=== PATIENT | female | born 1985 | race Caucasian/White ===

== ENCOUNTER 2017-12-23 12:18 | Emergency (ER) | payer SELFPAY, MEDICAID ==
[2017-12-23 15:01] LABS: ADD MAN DIFF? NO
[2017-12-23 15:04] LABS: WHITE BLOOD COUNT 9.5 10^3/ul (4.8-10.8)
[2017-12-23 15:04] LABS: BASOPHILS % 0.3 % (0.0-2.0); EOSINOPHILS # 0.1 10^3/ul (0.0-0.5); EOSINOPHILS % 1.5 % (0.0-7.0); HEMATOCRIT 39.6 % (37.0-47.0); HEMOGLOBIN 13.2 g/dl (12.0-16.0); LYMPHOCYTES # 1.6 10^3/ul (0.8-2.9); LYMPHOCYTES % 16.7 % (15.0-51.0); MEAN CORPUSCULAR HEMOGLOBIN 29.7 pg (29.0-33.0); MEAN CORPUSCULAR HGB CONC 33.3 g/dl (32.0-37.0); MEAN CORPUSCULAR VOLUME 89.2 fl (82.0-101.0); MEAN PLATELET VOLUME 11.2 fl (7.4-10.4); MONOCYTE # 0.6 10^3/ul (0.3-0.9); MONOCYTES % 6.1 % (0.0-11.0); NEUTROPHIL # 7.1 10^3/ul (1.6-7.5); PLATELET COUNT 282 10^3/UL (140-415); RED BLOOD COUNT 4.44 10^6/ul (4.20-5.40); RED CELL DISTRIBUTION WIDTH 13.2 % (11.5-14.5)
[2017-12-23 15:29] LABS: ANION GAP 16 (8-16); BLOOD UREA NITROGEN 13 mg/dl (7-20); CALCIUM 9.2 mg/dl (8.4-10.2); CARBON DIOXIDE 24 mmol/L (21-31); CHLORIDE 106 mmol/L (97-110); CREATININE 0.58 mg/dl (0.44-1.00); GLUCOSE 128 mg/dl (70-220); POTASSIUM 4.7 mmol/L (3.5-5.1); SODIUM 141 mmol/L (135-144)
[2017-12-23 15:42] LABS: ADD UMIC YES; UR ASCORBIC ACID NEGATIVE (NEGATIVE); UR BACTERIA MODERATE /HPF (NONE SEEN); UR BILIRUBIN (Dip) NEGATIVE (NEGATIVE); UR BLOOD (Dip) NEGATIVE (NEGATIVE); UR CLARITY CLOUDY (CLEAR); UR COLOR AMBER (YELLOW); UR GLUCOSE (Dip) 2+ mg/dL (NEGATIVE); UR KETONES (Dip) 1+ mg/dL (NEGATIVE); UR LEUKOCYTE ESTERASE (Dip) 1+ Leu/ul (NEGATIVE); UR MUCUS MANY /HPF (NONE SEEN); UR NITRITE (Dip) POSITIVE (NEGATIVE); UR RBC 11 /HPF (0-5); UR SPECIFIC GRAVITY (Dip) 1.029 (1.003-1.030); UR SQUAMOUS EPITHELIAL CELL MODERATE /HPF (FEW); UR TOTAL PROTEIN (Dip) NEGATIVE (NEGATIVE); UR UROBILINOGEN (Dip) 1+ mg/dL (NEGATIVE); UR WBC 6 /HPF (0-5)
[2017-12-23] MEDS: CEFTRIAXONE 1 GM INJ IM (16:56)
[2017-12-23] MEDS: LIDOCAINE 1% (MDV) 20 ML INJ SC (16:56)
== END 2017-12-23 17:46 | disposition home or self-care (01) ==
LOC: FTE 12:18
DX: O23.41 Unspecified infection of urinary tract in pregnancy, first trimester (principal); R10.2 Pelvic and perineal pain; Z3A.01 Less than 8 weeks gestation of pregnancy
CPT/HCPCS: 36415; 76801; 76817; 80048; 81001; 84702; 85025; 86900; 86901; 87086; 96372; 99285-25

== ENCOUNTER 2018-08-17 09:20 | Inpatient (IN) | payer MEDICAID ==
[2018-08-17] MEDS ORDERED: MISOPROSTOL 200 MCG TAB PR (10:30)
[2018-08-17] MEDS ORDERED: METHYLERGONOVINE 0.2 MG INJ IM (10:30)
[2018-08-17] MEDS ORDERED: CARBOPROST 250 MCG INJ IM (10:30)
[2018-08-17] MEDS ORDERED: OXYTOCIN 30 UNITS/LR 500 ML IV ×2 (10:30)
[2018-08-17] MEDS ORDERED: IBUPROFEN 600 MG TAB PO (10:30)
[2018-08-17] MEDS ORDERED: LIDOCAINE 1% (MPF) 30 ML INJ INJ (10:30)
[2018-08-17] MEDS ORDERED: BUTORPHANOL 1 MG INJ IV (10:30)
[2018-08-17] MEDS: LACTATED RINGER'S 1,000 ML IV* ×3 (10:48→22:40)
[2018-08-17 11:38] LABS: ADD MAN DIFF? NO
[2018-08-17 11:50] LABS: BASOPHILS % 0.3 % (0.0-2.0); EOSINOPHILS # 0.1 10^3/ul (0.0-0.5); EOSINOPHILS % 0.8 % (0.0-7.0); HEMATOCRIT 34.1 % (37.0-47.0); HEMOGLOBIN 11.3 g/dl (12.0-16.0); LYMPHOCYTES # 1.5 10^3/ul (0.8-2.9); LYMPHOCYTES % 19.9 % (15.0-51.0); MEAN CORPUSCULAR HEMOGLOBIN 29.4 pg (29.0-33.0); MEAN CORPUSCULAR HGB CONC 33.1 g/dl (32.0-37.0); MEAN CORPUSCULAR VOLUME 88.6 fl (82.0-101.0); MEAN PLATELET VOLUME 12.7 fl (7.4-10.4); MONOCYTE # 0.5 10^3/ul (0.3-0.9); MONOCYTES % 6.4 % (0.0-11.0); NEUTROPHIL # 5.5 10^3/ul (1.6-7.5); NEUTROPHILS % 72.3 % (39.0-77.0); PLATELET COUNT 224 10^3/UL (140-415); RED BLOOD COUNT 3.85 10^6/ul (4.20-5.40); RED CELL DISTRIBUTION WIDTH 13.1 % (11.5-14.5)
[2018-08-17 11:50] LABS: WHITE BLOOD COUNT 7.6 10^3/ul (4.8-10.8)
[2018-08-17 11:59] LABS: INR 0.88; PARTIAL THROMBOPLASTIN TIME 25.5 Sec (23.0-35.0); PT RATIO 0.9
[2018-08-17 12:41] LABS: ADD UMIC NO; UR ASCORBIC ACID NEGATIVE (NEGATIVE); UR BACTERIA FEW /HPF (NONE SEEN); UR BILIRUBIN (Dip) NEGATIVE (NEGATIVE); UR BLOOD (Dip) NEGATIVE (NEGATIVE); UR CLARITY SLIGHTLY CLOUDY (CLEAR); UR COLOR YELLOW (YELLOW); UR GLUCOSE (Dip) NEGATIVE (NEGATIVE); UR KETONES (Dip) NEGATIVE (NEGATIVE); UR LEUKOCYTE ESTERASE (Dip) NEGATIVE Leu/ul (NEGATIVE); UR NITRITE (Dip) NEGATIVE (NEGATIVE); UR RBC 1 /HPF (0-5); UR SPECIFIC GRAVITY (Dip) 1.004 (1.003-1.030); UR SQUAMOUS EPITHELIAL CELL FEW /HPF (FEW); UR TOTAL PROTEIN (Dip) NEGATIVE (NEGATIVE); UR UROBILINOGEN (Dip) NEGATIVE (NEGATIVE); UR WBC 2 /HPF (0-5)
[2018-08-17 13:07] LABS: AMPHETAMINE/METHAMPHETAMINE Negative (NEGATIVE); BARBITURATES Negative (NEGATIVE); BENZODIAZEPINES Negative (NEGATIVE); CANNABINOIDS Negative (NEGATIVE); COCAINE Negative (NEGATIVE); OPIATES Negative (NEGATIVE)
[2018-08-17] MEDS: MISOPROSTOL 50 MCG CAPSULE PO ×3 (13:48→22:46)
[2018-08-17 16:17] LABS: RAPID PLASMA REAGIN NONREACTIVE (NR)
[2018-08-17 17:08] LABS: HEPATITIS B SURFACE ANTIGEN NEGATIVE (NEGATIVE)
[2018-08-17] MEDS: BUTORPHANOL 2 MG INJ IV (20:31)
[2018-08-17] MEDS: DEXTROSE 5%-LR 1,000 ML IV (23:08)
[2018-08-18] MEDS: LACTATED RINGER'S 1,000 ML IV* ×6 (01:52→21:31)
[2018-08-18] MEDS ORDERED: FENTAnyl 2MCG/ML-ROPIV 0.2% 100 ML (02:43)
[2018-08-18] MEDS ORDERED: NALOXONE (0.4 MG/ML) INJ IV ×3 (03:00→08:00)
[2018-08-18] MEDS ORDERED: FENTAnyl 2MCG/ML-ROPIV 0.2% 100 ML BAG EPI (03:00)
[2018-08-18] MEDS: MISOPROSTOL 50 MCG CAPSULE PO ×2 (03:09→05:00)
[2018-08-18] MEDS ORDERED: OXYTOCIN 30 UNITS/LR 500 ML IV ×2 (04:00→10:30)
[2018-08-18] MEDS ORDERED: CITRIC ACID/NA CITRATE 30 ML CUP PO (07:30)
[2018-08-18] MEDS ORDERED: ONDANSETRON 4 MG INJ (07:31)
[2018-08-18] MEDS: METOCLOPRAMIDE 10 MG INJ IV (07:34)
[2018-08-18] MEDS: FAMOTIDINE 20 MG INJ IV (07:34)
[2018-08-18] MEDS: CEFAZOLIN 2 GM/50 ML (PMX) 50 ML IV (07:42)
[2018-08-18] MEDS: ONDANSETRON 4 MG INJ IV (07:45)
[2018-08-18] MEDS ORDERED: ONDANSETRON 4 MG INJ IV ×2 (08:00)
[2018-08-18] MEDS ORDERED: DIPHENHYDRAMINE 50 MG INJ IV (08:00)
[2018-08-18] MEDS ORDERED: HYDROmorphONE 0.5 MG/0.5 ML SYG IV (08:00)
[2018-08-18] MEDS ORDERED: FENTAnyl 50 MCG/ML VIAL IV ×2 (08:00)
[2018-08-18] MEDS ORDERED: ZOLPIDEM 5 MG TAB PO (08:00)
[2018-08-18] MEDS ORDERED: HYDROmorphONE 1 MG/5 ML IV SYRINGE IV ×3 (08:00)
[2018-08-18] MEDS ORDERED: LIDOCAINE 1.5%/EPI MPF (SDV) 30 ML VIAL (08:22)
[2018-08-18] MEDS ORDERED: morphine SULFATE/PF (10 MG/10 ML) INJ (08:27)
[2018-08-18] MEDS ORDERED: OXYTOCIN 10 UNIT INJ (08:28)
[2018-08-18] MEDS ORDERED: MISOPROSTOL 200 MCG TAB PR (10:30)
[2018-08-18] MEDS ORDERED: METHYLERGONOVINE 0.2 MG TAB PO (10:30)
[2018-08-18] MEDS ORDERED: METHYLERGONOVINE 0.2 MG INJ IM (10:30)
[2018-08-18] MEDS ORDERED: LANOLIN 7 GM TUBE TOP (10:30)
[2018-08-18] MEDS ORDERED: CARBOPROST 250 MCG INJ IM (10:30)
[2018-08-18] MEDS: OXYTOCIN 30 UNITS/LR 500 ML IV (11:09)
[2018-08-18] MEDS: KETOROLAC 30 MG INJ IV (11:20)
[2018-08-18] MEDS ORDERED: IBUPROFEN 600 MG TAB PO (12:00)
[2018-08-18] MEDS: DIPHENHYDRAMINE 50 MG INJ IV (13:15)
[2018-08-18] MEDS: SENNA/DOCUSATE NA (8.6MG/50MG) TAB PO (21:00)
[2018-08-18] MEDS: IBUPROFEN 800 MG TAB PO (22:00)
[2018-08-19] MEDS: KETOROLAC 30 MG INJ IV (01:44)
[2018-08-19] MEDS: DEXTROSE 5%-LR 1,000 ML IV ×3 (02:02→02:33)
[2018-08-19] MEDS: OXYCODONE/ACETAMINOPHEN (5/325) TAB PO ×6 (02:30→18:30)
[2018-08-19] MEDS: IBUPROFEN 800 MG TAB PO ×3 (02:32→13:24)
[2018-08-19] MEDS: LACTATED RINGER'S 1,000 ML IV* (05:26)
[2018-08-19] MEDS: HYDROmorphONE 0.5 MG/0.5 ML SYG IV (06:00)
[2018-08-19] MEDS: SENNA/DOCUSATE NA (8.6MG/50MG) TAB PO ×2 (08:28→20:35)
[2018-08-19] MEDS: HYDROCODONE/APAP (5/325) TAB PO ×5 (08:28→22:00)
[2018-08-19 08:45] LABS: ADD MAN DIFF? NO
[2018-08-19 08:49] LABS: WHITE BLOOD COUNT 9.3 10^3/ul (4.8-10.8)
[2018-08-19 08:49] LABS: BASOPHILS % 0.3 % (0.0-2.0); EOSINOPHILS # 0.1 10^3/ul (0.0-0.5); EOSINOPHILS % 0.8 % (0.0-7.0); HEMATOCRIT 27.6 % (37.0-47.0); LYMPHOCYTES # 1.5 10^3/ul (0.8-2.9); LYMPHOCYTES % 15.8 % (15.0-51.0); MEAN CORPUSCULAR HEMOGLOBIN 29.5 pg (29.0-33.0); MEAN CORPUSCULAR HGB CONC 32.6 g/dl (32.0-37.0); MEAN CORPUSCULAR VOLUME 90.5 fl (82.0-101.0); MEAN PLATELET VOLUME 12.3 fl (7.4-10.4); MONOCYTE # 0.4 10^3/ul (0.3-0.9); MONOCYTES % 4.6 % (0.0-11.0); NEUTROPHIL # 7.2 10^3/ul (1.6-7.5); NEUTROPHILS % 78.1 % (39.0-77.0); PLATELET COUNT 159 10^3/UL (140-415); RED BLOOD COUNT 3.05 10^6/ul (4.20-5.40); RED CELL DISTRIBUTION WIDTH 13.6 % (11.5-14.5)
[2018-08-19] MEDS: MAGNESIUM HYDROXIDE 30ML CUP PO (20:35)
[2018-08-20] MEDS: OXYCODONE/ACETAMINOPHEN (5/325) TAB PO ×3 (03:22→18:19)
[2018-08-20] MEDS: IBUPROFEN 800 MG TAB PO ×4 (03:22→20:28)
[2018-08-20] MEDS: HYDROCODONE/APAP (5/325) TAB PO ×3 (07:03→20:27)
[2018-08-20] MEDS: SENNA/DOCUSATE NA (8.6MG/50MG) TAB PO ×2 (10:02→21:17)
[2018-08-20] MEDS: DIPHTH/TET/ACEL PERTUSS (ADULT) 0.5 ML VIAL IM* (15:25)
[2018-08-21] MEDS: OXYCODONE/ACETAMINOPHEN (5/325) TAB PO ×3 (02:53→18:25)
[2018-08-21] MEDS: IBUPROFEN 800 MG TAB PO ×3 (05:52→22:00)
[2018-08-21] MEDS: HYDROCODONE/APAP (5/325) TAB PO ×3 (05:52→22:00)
[2018-08-21] MEDS: SENNA/DOCUSATE NA (8.6MG/50MG) TAB PO ×2 (10:48→22:00)
[2018-08-22] MEDS: OXYCODONE/ACETAMINOPHEN (5/325) TAB PO ×2 (02:39→10:52)
[2018-08-22] MEDS: IBUPROFEN 800 MG TAB PO ×2 (05:39→14:00)
[2018-08-22] MEDS: HYDROCODONE/APAP (5/325) TAB PO ×2 (05:39→14:00)
[2018-08-22] MEDS: SENNA/DOCUSATE NA (8.6MG/50MG) TAB PO (10:52)
[2018-08-22] MEDS: MEASLES,MUMPS,RUBELLA VACCINE INJ SC* (10:56)
== END 2018-08-22 16:40 | disposition home or self-care (01) | DRG 787 ==
LOC: L-D 09:20 → PP1 08-18 19:08
PROC: 10D00Z1 Extraction of Products of Conception, Low, Open Approach (ICD-10-PCS; principal; 2018-08-18 09:30)
DX: O76 Abnormality in fetal heart rate and rhythm complicating labor and delivery (principal); O98.53 Other viral diseases complicating the puerperium; B00.1 Herpesviral vesicular dermatitis; O77.0 Labor and delivery complicated by meconium in amniotic fluid; Z3A.40 40 weeks gestation of pregnancy; Z37.0 Single live birth; Z23 Encounter for immunization
CPT/HCPCS: 62319; 76815; 76818; 80307; 81001; 81003; 85025; 85610; 85730; 86592; 86850; 86900; 86901; 87340; 90686; 90715; 99464